=== PATIENT | male | born 1940 | race Caucasian/White ===

== ENCOUNTER 2017-12-12 18:34 | Emergency (ER) | payer MEDICARE ==
[~2017-12-12] VITALS: Ht 185.4 cm; Wt 101.9 kg
[~2017-12-12 18:34] MED LIST: LORT5TAB PO; Z.0.NO CURRENT MEDS
[2017-12-12 18:51] VITALS: BP 151/72; PULSE 84; RESP 24; TEMP 98.6; O2SAT 94
--- NOTE | 2017-12-12 21:14 | PD ---
HPI Chief Complaint: sob Time Seen by Provider: 21:00 Travel History International Travel<30 days: No Contact w/Intl Traveler<30days: No Traveled to known affect area: No History of Present Illness HPI 76yo M with PMH of CAD s/p stent presents to the ED with c/o sob for a few days. Said he had some cold symptoms but feeling worse when he lies down. Denies any chest pain, fever, n/v, focal weakness or numbness. Pt is a chronic smoker for years and did not smoke for the last week. Pt also with left lower abdominal pain since yesterday that is associated with nonbloody diarrhea. Denies any urinary complaints. 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 [facility] Past Medical History Coronary Artery Disease: Yes Past Surgical History Coronary Stent: Yes Social History Alcohol Use: No Tobacco Use: Yes (1 PPD) Substance Use: No Allergies-Medications (Allergen,Severity, Reaction): Coded Allergies: No Known Allergies (Unverified Adverse Reaction, Unknown, 12/12/17) Reported Meds & Prescriptions Reported Meds & Active Scripts Active Ventolin Hfa 18 GM Inh (Albuterol Sulfate) 90 Mcg/Act Aer 2 Puff INH Q4H PRN Deltasone (Prednisone) 20 Mg Tab 20 Mg PO BID 5 Days Eliquis (Apixaban) 5 Mg Tab 5 Mg PO BID Reported Aspirin 325 Mg Tab 325 Mg PO DAILY Review of Systems Except as stated in HPI: all other systems reviewed are Neg Physical Exam Narrative GENERAL: 76yo M in mild distress. SKIN: Focused skin assessment warm/dry. HEAD: Atraumatic. Normocephalic. EYES: Pupils equal and round. No scleral icterus. No injection or drainage. ENT: No nasal bleeding or discharge. Mucous membranes pink and moist. NECK: Trachea midline. No JVD. CARDIOVASCULAR: Regular rate and rhythm. No murmur appreciated. RESPIRATORY: + accessory muscle use. Coarse breath sounds on left with end expiratory wheezing. GASTROINTESTINAL: Abdomen soft,+TTP LLQ. No rebound tenderness or guarding. MUSCULOSKELETAL: No obvious deformities. No clubbing. No cyanosis. No edema. No calf tenderness. NEUROLOGICAL: Awake and alert. No obvious cranial nerve deficits. Motor grossly within normal limits. Normal speech. PSYCHIATRIC: Appropriate mood and affect; insight and judgment normal. Data Data Last Documented VS Vital Signs Date Time Temp Pulse Resp B/P (MAP) Pulse Ox O2 Delivery O2 Flow Rate FiO2 12/12/17 22:47 96 20 116/64 (81) 95 Room Air 12/12/17 18:51 98.6 Orders Orders Complete Blood Count With Diff (12/12/17 21:07) Basic Metabolic Panel (Bmp) (12/12/17 21:07) B-Type Natriuretic Peptide (12/12/17 21:07) Act Partial Throm Time (Ptt) (12/12/17 21:07) Prothrombin Time / Inr (Pt) (12/12/17 21:07) Magnesium (Mg) (12/12/17 21:07) Troponin I (12/12/17 21:07) Urinalysis - C+S If Indicated (12/12/17 21:07) Influenzae A/B Antigen (12/12/17 21:07) Electrocardiogram (12/12/17 21:07) Chest, Single Ap (12/12/17 21:07) Albuterol-Ipratropium Neb (Duoneb Neb) (12/12/17 21:15) Prednisone (Deltasone) (12/12/17 21:15) Ct Abd/Pel W Iv Contrast(Rout) (12/12/17 ) Iohexol 350 Inj (Omnipaque 350 Inj) (12/12/17 22:42) Metoprolol Tartrate (Lopressor) (12/12/17 22:45) Apixaban (Eliquis) (12/12/17 23:30) Ed Discharge Order (12/12/17 23:35) Labs Laboratory Tests Test 12/12/17 21:20 12/12/17 22:20 White Blood Count 6.9 TH/MM3 Red Blood Count 4.85 MIL/MM3 Hemoglobin 14.3 GM/DL Hematocrit 43.2 % Mean Corpuscular Volume 89.2 FL Mean Corpuscular Hemoglobin 29.5 PG Mean Corpuscular Hemoglobin Concent 33.0 % Red Cell Distribution Width 12.4 % Platelet Count 236 TH/MM3 Mean Platelet Volume 9.1 FL Neutrophils (%) (Auto) 68.8 % Lymphocytes (%) (Auto) 21.1 % Monocytes (%) (Auto) 6.8 % Eosinophils (%) (Auto) 1.1 % Basophils (%) (Auto) 2.2 % Neutrophils # (Auto) 4.6 TH/MM3 Lymphocytes # (Auto) 1.5 TH/MM3 Monocytes # (Auto) 0.5 TH/MM3 Eosinophils # (Auto) 0.1 TH/MM3 Basophils # (Auto) 0.2 TH/MM3 CBC Comment DIFF FINAL Differential Comment Prothrombin Time 11.4 SEC Prothromb Time International Ratio 1.1 RATIO Activated Partial Thromboplast Time 28.9 SEC Blood Urea Nitrogen 15 MG/DL Creatinine 0.95 MG/DL Random Glucose 106 MG/DL Calcium Level 8.7 MG/DL Magnesium Level 1.9 MG/DL Sodium Level 136 MEQ/L Potassium Level 3.8 MEQ/L Chloride Level 101 MEQ/L Carbon Dioxide Level 27.7 MEQ/L Anion Gap 7 MEQ/L Estimat Glomerular Filtration Rate 77 ML/MIN Troponin I LESS THAN 0.02 NG/ML B-Type Natriuretic Peptide 617 PG/ML Urine Color YELLOW Urine Turbidity CLEAR Urine pH 5.5 Urine Specific [place] 1.031 Urine Protein NEG mg/dL Urine Glucose (UA) NEG mg/dL Urine Ketones NEG mg/dL Urine Occult Blood TRACE Urine Nitrite NEG Urine Bilirubin NEG Urine Leukocyte Esterase NEG Urine RBC 0-3 /hpf Urine WBC 0-2 /hpf Urine Squamous Epithelial Cells 0-5 /hpf Microscopic Urinalysis Comment CULT NOT INDICATED MDM Medical Decision Making Medical Screen Exam Complete: Yes Emergency Medical Condition: Yes Interpretation(s) EKG: Afib at 112bpm. LAD. PVC. Differential Diagnosis Pneumonia vs. COPD vs. CHF vs. diverticulitis Narrative Course 76yo M with PMH of CAD here with c/o sob for a few days. Pt is a chronic smoker and has mild expiratory wheezing so given duonebs x 3 and prednisone. Pt reevaluated after treatment and is feeling better. Pt follows with Dr. Roberson but has not seen him since 2003. EKG showed afib and said he has had irregular heart beat before but does not know what it is. Pt only takes aspirin sometimes and is not on anticoagulation. CHADSVASC score of 3, will start him on eliquis. Pt given first dose here. Labs reviewed, no leukocytosis. BNP elevated at 617. Troponin negative. CXR negative. UA negative. Pt also had mild left lower abdominal pain so CT scan completed. CT s/p showed left sided inguinal hernia containing lower left colon and most of the sigmoid colon. No evidence for large bowel obstruction. Mild dilatation of small bowel without transition zone. May represent ileus. Pt said he does not want anything for pain and has diarrhea. Denies any vomiting. I want to keep patient for observation and have cardiology see him as well as serial abdominal exams but pt is refusing admission. HR fluctuates from 80s to low 110s so metoprolol 25mg given. Pt said he will call Dr. Roberson tomorrow and return to the ED if symptoms worsen. AMA: The risks of leaving against medical advice without further evaluation treatment were discussed with the patient. These risks include cardiac dysfunction, cardiac dysrhythmia, possible heart attack, possible stroke or . The patient indicated understanding of these risks and appeared to have the capacity to make this decision. Diagnosis Primary Impression: Atrial fibrillation Qualified Codes: I48.91 - Unspecified atrial fibrillation Additional Impression: COPD exacerbation Patient Instructions: General Instructions Departure Forms: Tests/Procedures Additional Instructions: Please follow up with Dr. Roberson tomorrow. I am starting you on anticoagulation with eliquis for atrial fibrillation. Return to the ED if your symptoms worsen. Med/Other Pt SpecificInfo: Prescription(s) given Scripts Albuterol 18 GM Inh (Ventolin Hfa 18 GM Inh) 90 Mcg/Act Aer 2 PUFF INH Q4H Y for SHORTNESS OF BREATH, #1 INHALER 0 Refills Prov: Zoë Mckeon DO 12/12/17 Prednisone (Deltasone) 20 Mg Tab 20 MG PO BID for 5 Days, #10 TAB 0 Refills Prov: Zoë Mckeon DO 12/12/17 Apixaban (Eliquis) 5 Mg Tab 5 MG PO BID for Blood Clot Prevention, #14 TAB 0 Refills Prov: Zoë Mckeon DO 12/12/17 Disposition: 07 AGAINST MEDICAL ADVICE Condition: Stable MckeonLilliana carranzaángel ODDGE Dec 12, 2017 21:14
[2017-12-12] MEDS ORDERED: predniSONE 50 MG TAB PO ONE (21:15)
[2017-12-12] MEDS: RESP: ALBUTEROL 2.5 MG/IPRATROPIUM 0.5 MG NEB (SCH) INH ×3 (21:27→21:48)
[2017-12-12 21:36] LABS: AUTOMATED NEUTROPHIL # 4.6 TH/MM3 (1.8-7.7); BASOPHIL # 0.2 TH/MM3 (0-0.2); BASOPHIL % 2.2 % (0.0-2.0); EOSINOPHIL # 0.1 TH/MM3 (0-0.4); EOSINOPHIL % 1.1 % (0.0-4.0); HEMATOCRIT 43.2 % (39.0-51.0); HEMOGLOBIN 14.3 GM/DL (13.0-17.0); LYMPH % 21.1 % (9.0-44.0); LYMPHOCYTE # 1.5 TH/MM3 (1.0-4.8); MEAN CELL VOLUME 89.2 FL (80.0-100.0); MEAN CORPUSCULAR HEMOGLOBIN 29.5 PG (27.0-34.0); MEAN PLATELET VOLUME 9.1 FL (7.0-11.0); MONO % 6.8 % (0.0-8.0); MONOCYTE # 0.5 TH/MM3 (0-0.9); NEUT % 68.8 % (16.0-70.0); PLATELET COUNT 236 TH/MM3 (150-450); RED BLOOD COUNT 4.85 MIL/MM3 (4.50-5.90); RED CELL DISTRIBUTION WIDTH 12.4 % (11.6-17.2); WHITE BLOOD COUNT 6.9 TH/MM3 (4.0-11.0)
[2017-12-12 21:42] LABS: CHLORIDE 101 MEQ/L (98-107); SODIUM (NA) 136 MEQ/L (136-145)
[2017-12-12 21:46] LABS: BICARBONATE 27.7 MEQ/L (21.0-32.0); CALCIUM 8.7 MG/DL (8.5-10.1); GLUCOSE,RANDOM 106 MG/DL (74-106); MAGNESIUM 1.9 MG/DL (1.5-2.5)
[2017-12-12 21:47] LABS: BLOOD UREA NITROGEN 15 MG/DL (7-18)
[2017-12-12 21:48] LABS: INTERNATIONAL NORMALIZED RATIO 1.1 RATIO; PROTHROMBIN TIME - PATIENT 11.4 SEC (9.8-11.6)
[2017-12-12 21:50] LABS: CREATININE 0.95 MG/DL (0.60-1.30); GLOMERULAR FILTRATION RATE 77 ML/MIN (>89)
[2017-12-12 21:55] LABS: TROPONIN I LESS THAN 0.02 NG/ML (0.02-0.05)
--- NOTE | 2017-12-12 22:26 | RADRPT ---
EXAM DATE/TIME: 12/12/2017 22:10 [facility] COMPARISON: No previous studies available for comparison. INDICATIONS : Short of breath. MEDICAL HISTORY : Coronary artery disease. SURGICAL HISTORY : Coronary artery stent. ENCOUNTER: Initial ACUITY: 1 week PAIN SCORE: 0/10 LOCATION: Bilateral chest FINDINGS: A single view of the chest demonstrates the lungs to be symmetrically aerated without evidence of mas s, infiltrate or effusion. The cardiomediastinal contours are unremarkable. Osseous structures are intact. CONCLUSION: 1. No active disease. Zane Singh MD on December 12, 2017 at 22:23 Board Certified Radiologist. This report was verified electronically.
[2017-12-12 22:37] LABS: BILIRUBIN, URINE NEG (NEG); BLOOD, URINE TRACE (NEG); GLUCOSE,URINE NEG (NEG); KETONE, URINE NEG (NEG); NITRITE,URINE NEG (NEG); PH, URINE 5.5 (5.0-8.5); URINE LEUKOCYTE ESTERASE NEG (NEG)
[2017-12-12] MEDS ORDERED: IOHEXOL 350 MG/ML 10 ML VIAL (for RAD DIAG) IVCONTRAST ONE (22:42)
--- NOTE | 2017-12-12 22:42 | RADRPT ---
EXAM DATE/TIME: 12/12/2017 22:04 [facility] COMPARISON: No previous studies available for comparison. INDICATIONS : Left lower quadrant pain. IV CONTRAST: 100 cc Omnipaque 350 (iohexol) IV ORAL CONTRAST: No oral contrast ingested. RADIATION DOSE: 19.47 CTDIvol (mGy) MEDICAL HISTORY : Cardiovascular disease. SURGICAL HISTORY : Coronary artery stent. ENCOUNTER: Initial ACUITY: 1 day PAIN SCALE: 5/10 LOCATION: Left lower quadrant TECHNIQUE: Volumetric scanning of the abdomen and pelvis was performed. Using automated exposure control and ad justment of the mA and/or kV according to patient size, radiation dose was kept as low as reasonably achievable to obtain optimal diagnostic quality images. DICOM format image data is available electro nically for review and comparison. FINDINGS: Lung bases are clear. Spleen, adrenals, kidneys and pancreas are unremarkable. Calcified gallstone. T iny hepatic cysts. Small bowel is mildly dilated without definite transition zone. There is a fairly large loop of the l eft colon within a left inguinal hernia. No free fluid or free air. No acute bony abnormalities. CONCLUSION: 1. Left sided inguinal hernia containing the lower left colon and most of the sigmoid colon. No evide nce for large bowel obstruction. 2. Mild dilatation of small bowel without transition zone. This may represent an ileus. 3. Calcified gallstone. 4. Ectasia and tortuosity of the distal abdominal aorta. 5. A small hiatal hernia. Zane Singh MD on December 12, 2017 at 22:35 Board Certified Radiologist. This report was verified electronically.
[2017-12-12] MEDS ORDERED: METOPROLOL TARTRATE 25 MG TAB PO ONE (22:45)
[2017-12-12] MEDS ORDERED: ASPI-183 PO (22:45)
[2017-12-12 22:46] LABS: RBC, URINE 0-3 /hpf (0-3); SQUAMOUS EPITHELIAL CELL URINE 0-5 /hpf (0-5); URINE COLOR YELLOW (YELLW/STRAW); WBC, URINE 0-2 /hpf (0-5)
[2017-12-12 22:47] VITALS: BP 116/64; PULSE 96; RESP 20; O2SAT 95
[2017-12-12] MEDS ORDERED: APIXABAN 5 MG TABLET PO ONE (23:30)
[2017-12-12] MEDS ORDERED: APIX5TAB PO (23:32)
[2017-12-12] MEDS ORDERED: VENTAER INH (23:32)
[2017-12-12] MEDS ORDERED: PRED-503 PO (23:32)
[2017-12-12 23:40] VITALS: BP 122/68; PULSE 101; RESP 18; O2SAT 98
--- NOTE | 2017-12-13 12:20 | EKG ---
Date Performed: 12/12/2017 Time Performed: 21:24:55 PTAGE: 76 years EKG: Sinus rhythm WITH VERY FREQUENT PACS AND RUNS OF NONSUSTAINED ATRIAL TACHYCARDIA VENTRICULAR PREMATURE COMPLEXES LEFT ANTERIOR FASCICULAR BLOCK SEPTAL MYOCARDIAL INFARCTION ABNORMAL ECG PREVIOUS TRACING : 01/21/2012 17.05 Compared to prior tracing, very frequent ectopy present DOCTOR: Brett Dee Interpretating Date/Time 12/13/2017 12:20:00
== END 2017-12-12 23:45 | disposition left against medical advice (07) ==
LOC: PHED 18:34
DX: I48.91 Unspecified atrial fibrillation (principal); J44.1 Chronic obstructive pulmonary disease with (acute) exacerbation; F17.210 Nicotine dependence, cigarettes, uncomplicated; I25.10 Atherosclerotic heart disease of native coronary artery without angina pectoris; Z79.01 Long term (current) use of anticoagulants
CPT/HCPCS: 71045; 74177; 80048; 81001; 83735; 83880; 84484; 85025; 85610; 85730; 87804; 93005; 94640; 94664; 99285; J7512; Q9967